=== PATIENT | male | born 1950 | race African-American/Black ===

== ENCOUNTER 2018-03-03 21:13 | Emergency (ER) | payer MEDICARE ==
[2018-03-03] MEDS ORDERED: ONDANSETRON 4 MG TAB.RAPDIS PO ONE (22:26)
[2018-03-03] MEDS ORDERED: HYDROCODONE/ACETAMINOPHEN 5-325 MG (6 TAB/ER DISP) PO PRN (22:26)
[2018-03-03] MEDS ORDERED: SILVER SULFADIAZINE 1% CREAM 25 GM TP ONE (22:26)
[2018-03-03] MEDS ORDERED: ONDANSETRON ODT 4 MG TAB (6 TAB/ER DISP) PO PRN (22:26)
[2018-03-03] MEDS ORDERED: ACETAMINOPHEN 325 MG TABLET PO ONE (22:26)
[2018-03-03] MEDS ORDERED: MORPHINE SULFATE IR 15 MG TABLET PO ONE (22:26)
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
[2018-03-03] MEDS ORDERED: DIPH/PERTUSS(ACELL)/TETANUS VAC/PF 0.5 ML SYR (>=10YO) IM ONE (23:22)
[2018-03-04 00:04] VITALS: BP 148/100
== END 2018-03-04 00:04 | disposition home or self-care (01) ==
LOC: ER 21:13
DX: T22.221A Burn of second degree of right elbow, initial encounter (principal); T22.212A Burn of second degree of left forearm, initial encounter; T20.19XA Burn of first degree of multiple sites of head, face, and neck, initial encounter; S09.90XA Unspecified injury of head, initial encounter; X08.8XXA Exposure to other specified smoke, fire and flames, initial encounter; W40.1XXA Explosion of explosive gases, initial encounter; F17.200 Nicotine dependence, unspecified, uncomplicated; J44.9 Chronic obstructive pulmonary disease, unspecified
CPT/HCPCS: 99284; 90471; 90715; A9270 ×6; S0119